=== PATIENT | female | born 1990 | race Caucasian/White ===

== ENCOUNTER 2024-01-06 10:31 | Emergency (ER) | payer MEDICAID, SELFPAY ==
[2024-01-06 10:34] VITALS: BP 144/90; PULSE 102; RESP 18; TEMP 36.7; O2SAT 100; BMI 49.1
--- NOTE | 2024-01-06 10:38 | ECG_ITS ---
APPROVED REPORT Exam: Resting ECG HR:87 bpm ECG Measurements Heart Rate 87 AXES UT 152 P 58 QRSd 90 QRS 6 QT 309 T 29 QTc 353 Conclusion SINUS RHYTHM NORMAL ECG UNCONFIRMED REPORT Electronically signed by : Luis Delaney MD 01/06/2024 19:53:05
[2024-01-06 11:00] VITALS: BP 136/79; PULSE 91; O2SAT 100
--- NOTE | 2024-01-06 11:00 | PC.NURSE ---
Dr. Mullen at [facility] for pt eval
--- NOTE | 2024-01-06 11:02 | XR_ITS ---
PROCEDURE INFORMATION: Exam: XR Chest Exam date and time: 01/06/2024 11:05 AM Age: 43 years old Clinical indication: Dyspnea TECHNIQUE: Imaging protocol: Radiologic exam of the chest. Views: 1 view. COMPARISON: No relevant prior studies available. FINDINGS: Lungs: Lung volumes are low. The lungs are otherwise clear. Pleural spaces: Unremarkable. No pleural effusion. No pneumothorax. Heart/Mediastinum: Unremarkable. No cardiomegaly. Bones/joints: Unremarkable. IMPRESSION: Low lung volumes.
--- NOTE | 2024-01-06 11:02 | HMH.EDGENADL ---
Discharge Plan Disposition Patient Disposition: Home, Self-Care Referrals Follow up/Referrals: Sussy Castillo [Primary Care Provider] - See instructions Clinical Impressions Clinical Impression: Cramp of muscle of left upper extremity, Cramp of muscle of right upper extremity, Atypical chest pain, Anxiety Discharge ED Provider: Estefany Mullen General Adult HPI General Chief complaint: Dizziness Stated complaint: dizziness shooting pain up each arm soa Time Seen by Provider: 01/06/24 10:59 Mode of Arrival: Ambulatory Source of Information: Patient Limitations: No Limitations Description of Symptoms (Recalled from ER Triage Doc. by RN): dizziness. tiongling in extremities. anxiety. no current symptoms History of Present Illness HPI narrative: Patient is a 43-year-old here with multiple complaints primarily here for bilateral arm tightness. No range of motion abnormalities states that she is been taking Tylenol with improvement in her symptoms. She states she had a short episode of chest pain yesterday with some dyspnea. Symptoms have since resolved. She is been undergoing a divorce and is very anxious and stressed out she believes that the majority of her symptoms she had been evaluated by physicians last year for this after COVID and flu episode and was told that it was largely anxiety. She is currently without any chest pain or shortness of breath. Has full range of motion her upper extremities has no sensory or motor deficits from historical standpoint. Related Data Allergies Allergy/AdvReac Type Severity Reaction Status Date / Time amoxicillin Allergy Verified 01/06/24 10:56 cephalexin [From Keflex] Allergy Verified 01/06/24 10:56 clindamycin Allergy Verified 01/06/24 10:56 diphenhydramine Allergy Verified 01/06/24 10:56 [From Benadryl] fexofenadine [From Violet] Allergy Verified 01/06/24 10:56 pantoprazole [From Protonix] Allergy Verified 01/06/24 10:56 Penicillins Allergy Verified 01/06/24 10:56 Sulfa (Sulfonamide Allergy Verified 01/06/24 10:56 Antibiotics) [facility] Disclaimer: The information contained in this section may have been updated after the patient was seen, as this information can be updated by other users. Social History Smoking Status: Never smoker alcohol intake: former current occupational status: other Travel in the last 8 weeks: None ROS Obtained: Yes All systems reviewed & no additional complaints except as documented Physical Exam General General appearance: alert Respiratory Respiratory exam: Present normal lung sounds bilaterally Cardiovascular Cardiovascular exam: Present regular rate Neurological Exam Neurological exam: Present alert Medical Decision Making Berry Inquiry Pt receiving controlled substance: No Vital Signs: 01/06/24 10:34 01/06/24 11:00 Temperature 98.1 F Temperature Source Oral Pulse Rate 91 H Pulse Rate [Right Radial] 102 H Respiratory Rate 18 Blood Pressure 136/79 Blood Pressure [Right Arm] 144/90 H Blood Pressure Mean [Right Arm] 108 02 Sat by Pulse Oximetry 100 100 Oxygen Delivery Method Room Air Room Air Lab Data Lab results reviewed: Yes I reviewed the patient's lab results. Lab Results 01/06/24 10:56: Urine Color Yellow, Urine Appearance Clear, Urine pH 6.0, Ur Specific [place] 1.025, Urine Protein Negative, Urine Glucose (UA) Negative, Urine Ketones Negative, Urine Blood Negative, Urine Nitrate Negative, Urine Bilirubin Negative, Urine Urobilinogen 1.0, Ur Leukocyte Esterase 1+ A, Urine RBC Occasional, Urine WBC 3-5, Ur Squamous Epith Cells 3-5, Urine Bacteria 1+ 01/06/24 11:18: WBC 7.9, RBC 4.26, Hgb 10.2 L, Hct 32.4 L, MCV 76.0 L, MCH 24.0 L, MCHC 31.6 L, RDW 17.7 H, Plt Count 365, MPV 7.6, Neut % (Auto) 64.7, Lymph % (Auto) 26.6, [place] % (Auto) 6.9, Eos % (Auto) 1.4, Baso % (Auto) 0.4, Neut # (Auto) 5.1, Lymph # (Auto) 2.1, [place] # (Auto) 0.5, Eos # (Auto) 0.1, Baso # (Auto) 0.0, Sodium 138, Potassium 3.7, Chloride 106, Carbon Dioxide 25, Anion Gap 10.7, BUN 9, Creatinine 0.70, Estimated Creat Clear 88, Estimated GFR 98, Est GFR ( Amer) 118, Glucose 100, Calcium 8.2 L, Magnesium 1.9, Total Bilirubin 0.3, AST 23, ALT 17, Alkaline Phosphatase 115, Total Creatine Kinase 72, Troponin I < 0.01, Total Protein 7.3, Albumin 3.9, Globulin 3.4 H, Albumin/Globulin Ratio 1.1 01/06/24 11:18 01/06/24 11:18 Orders (Tests/Meds): ORDERS Category Date Time Status CXR --portable [XR chest portable] Stat Exams 01/06/24 11:02 Completed CBC w/Auto Diff [Complete Blood Count Auto Diff] Stat Lab 01/06/24 11:18 Completed CK [Creatine Kinase] Stat Lab 01/06/24 11:18 Completed CMP [Comprehensive Metabolic Panel] Stat Lab 01/06/24 11:18 Completed Magnesium Stat Lab 01/06/24 11:18 Completed Trop I [Troponin I] Stat Lab 01/06/24 11:18 Completed Troponin I Q3H Lab 01/06/24 14:15 Ordered Troponin I Q3H Lab 01/06/24 17:15 Ordered UA [Urinalysis and Microscopic] Stat Lab 01/06/24 10:56 Completed Urine Culture Stat Micro 01/06/24 10:56 Received ECG initial [place] Routine Y 01/06/24 10:38 Completed ECG Data Tracing #1: I reviewed this ECG and interpreted as documented below: (Ventricular rate of 87 no acute ischemic changes indeterminate axis no conduction abnormalities) HEART Score History (anamnesis): Slightly suspicious ECG: Normal Age: <45 years Risk factors: No known risk factors Troponin: </= normal limit HEART Score: 0 Medical Decision Narrative: Very well-appearing 43-year-old asymptomatic female presenting with a with arm cramping that is since resolved she has been tolerating Tylenol for this and having improvement in symptoms she has normal neurovascular and muscular exam in upper extremities. She also had some chest pain and shortness of breath yesterday and is very anxious. States she was wanting to just get her heart checked out primarily. This is not consistent with ACS EKG is nonischemic we will get a single troponin. She is PERC negative. She will be reassured if her workup is negative and will be followed up outpatient. Reassessment 11:54 AM. Labs unremarkable chest x-ray performed which I first interpreted shows no acute cardiopulmonary emergency. Patient was reassured that no emergent medical condition was identified. She was discharged with instructions to follow-up with primary care doctor. Critical Care Critical Care Time Critical Care Time: No
[2024-01-06 11:03] LABS: Microscopic, Urine URINE MICROSCOPIC (MICROSCOPIC)
[2024-01-06 11:05] LABS: Appearance,Urine CLEAR (Clear); Bilirubin,Urine Negative (Negative); Blood, Urine Negative (Negative); Color,Urine YELLOW (Yellow); Glucose,Urine (UA) Negative (Negative); Ketones,Urine Negative (Negative); Leukocyte Esterase,Urine 1+ (Negative); Nitrate,Urine Negative (Negative); Protein,Urine Negative (Negative); Specific Gravity, Urine 1.025 (1.005-1.030)
--- NOTE | 2024-01-06 11:09 | PC.NURSE ---
RAD at for CXR
[2024-01-06 11:18] LABS: Bacteria,Urine 1+ /lpf; RBC,Urine Occasional #/hpf (0-3)
[2024-01-06 11:34] LABS: Basophils % 0.4 % (0.1-2.0); Eosinophils # 0.1 K/mm3 (0.0-0.4); Eosinophils % 1.4 % (0.1-12.0); Hematocrit 32.4 % (37.0-47.0); Hemoglobin 10.2 g/dL (12.2-16.2); Lymphocytes # 2.1 K/mm3 (0.7-4.5); Lymphocytes % 26.6 % (10-50); Mean Corpuscular HGB Conc 31.6 g/dL (31.8-35.4); Mean Platelet Volume 7.6 fl (7.4-10.4); Monocytes # 0.5 K/mm3 (0.1-1.0); Monocytes % 6.9 % (1.7-9.3); Neutrophils # 5.1 K/mm3 (1.8-7.8); Neutrophils % 64.7 % (37.0-80.0); Platelet Count 365 K/mm3 (142-424); Red Blood Count 4.26 M/mm3 (4.20-5.40); Red Cell Distribution Width 17.7 % (11.5-17.5); White Blood Count 7.9 K/mm3 (4.8-10.8)
[2024-01-06 11:36] LABS: Chloride 106 mmol/L (98-107); Potassium 3.7 mmoL/L (3.5-5.1); Sodium 138 mmol/L (136-145)
[2024-01-06 11:38] LABS: Blood Urea Nitrogen 9 mg/dl (7-17); Creatinine Clearance Estimated 88 mL/min (50-200); Estimated Glomerular Filt Rate 98 ml/min (>60); GFR (African American) 118 ML/MIN (>60)
[2024-01-06 11:39] LABS: Alanine Aminotransferase 17 U/L (12-78); Albumin Level 3.9 g/dl (3.5-5.0); Albumin/Globulin Ratio 1.1 (1.1-1.8); Alkaline Phosphatase 115 U/L (38-126); Anion Gap 10.7 mEq/L (5-15); Aspartate Amino Transferase 23 U/L (14-36); Bilirubin,Total 0.3 mg/dl (0.2-1.3); Calcium 8.2 mg/dl (8.4-10.2); Carbon Dioxide 25 mmol/L (22.0-30.0); Creatine Kinase 72 U/L (30-135); Globulin 3.4 g/dL (1.3-3.2); Glucose 100 mg/dl (74-100); Total Protein,Serum 7.3 g/dl (6.3-8.2)
[2024-01-06 11:40] LABS: Magnesium 1.9 mg/dl (1.6-2.3)
[2024-01-06 11:52] LABS: Troponin I < 0.01 ng/ml (0.00-0.034)
--- NOTE | 2024-01-06 11:52 | PC.NURSE ---
Dr. Mullen at BS to update pt on results
[2024-01-06 11:55] VITALS: BP 122/60; PULSE 72; RESP 18; TEMP 36.7; O2SAT 100
--- NOTE | 2024-01-06 12:00 | P.HP_ITS ---
[facility] Disclaimer: The information contained in this section may have been updated after the patient was seen, as this information can be updated by other users. Social History (Updated 01/06/24 @ 11:55 by Estefany Mullen MD) Smoking Status: Never smoker alcohol intake: former current occupational status: other Travel in the last 8 weeks: None Meds Home Medications and Allergies New Prescriptions to Start Prescriptions: Allergies Allergy/AdvReac Type Severity Reaction Status Date / Time amoxicillin Allergy Verified 01/06/24 10:56 cephalexin [From Keflex] Allergy Verified 01/06/24 10:56 clindamycin Allergy Verified 01/06/24 10:56 diphenhydramine Allergy Verified 01/06/24 10:56 [From Benadryl] fexofenadine [From Violet] Allergy Verified 01/06/24 10:56 pantoprazole [From Protonix] Allergy Verified 01/06/24 10:56 Penicillins Allergy Verified 01/06/24 10:56 Sulfa (Sulfonamide Allergy Verified 01/06/24 10:56 Antibiotics) Exam Data for Last 24 hours Vital signs and Labs for Last 24 Hours: Temp Pulse Resp BP Pulse Ox O2 Del Method 98.0 F 72 18 122/60 100 Room Air 01/06/24 11:55 01/06/24 11:55 01/06/24 11:55 01/06/24 11:55 01/06/24 11:00 01/06/24 11:55 Laboratory Results - last 24 hr 01/06/24 10:56: Urine Color Yellow, Urine Appearance Clear, Urine pH 6.0, Ur Specific [place] 1.025, Urine Protein Negative, Urine Glucose (UA) Negative, Urine Ketones Negative, Urine Blood Negative, Urine Nitrate Negative, Urine Bilirubin Negative, Urine Urobilinogen 1.0, Ur Leukocyte Esterase 1+ A, Urine RBC Occasional, Urine WBC 3-5, Ur Squamous Epith Cells 3-5, Urine Bacteria 1+ 01/06/24 11:18: WBC 7.9, RBC 4.26, Hgb 10.2 L, Hct 32.4 L, MCV 76.0 L, MCH 24.0 L, MCHC 31.6 L, RDW 17.7 H, Plt Count 365, MPV 7.6, Neut % (Auto) 64.7, Lymph % (Auto) 26.6, [place] % (Auto) 6.9, Eos % (Auto) 1.4, Baso % (Auto) 0.4, Neut # (Auto) 5.1, Lymph # (Auto) 2.1, [place] # (Auto) 0.5, Eos # (Auto) 0.1, Baso # (Auto) 0.0, Sodium 138, Potassium 3.7, Chloride 106, Carbon Dioxide 25, Anion Gap 10.7, BUN 9, Creatinine 0.70, Estimated Creat Clear 88, Estimated GFR 98, Est GFR ( Amer) 118, Glucose 100, Calcium 8.2 L, Magnesium 1.9, Total Bilirubin 0.3, AST 23, ALT 17, Alkaline Phosphatase 115, Total Creatine Kinase 72, Troponin I < 0.01, Total Protein 7.3, Albumin 3.9, Globulin 3.4 H, Albumin/Globulin Ratio 1.1 I & O for Last 24 hours: Intake & Output 01/03/24 01/04/24 01/05/24 01/06/24 23:59 23:59 23:59 23:59 Weight 117.934 kg
== END 2024-01-06 11:57 | disposition home or self-care (01) ==
PROVIDERS: Emergency Provider Student in an Organized Health Care Education/Training Program; PCP Family Medicine
DX: R42 Dizziness and giddiness (principal); R25.2 Cramp and spasm; F41.9 Anxiety disorder, unspecified; R20.2 Paresthesia of skin
CPT/HCPCS: 71045; 80053; 81001; 82550; 83735; 84484; 85025; 87086; 93005; 99285

== ENCOUNTER 2024-04-01 21:38 | Emergency (ER) | payer MEDICAID, SELFPAY ==
[2024-04-01 21:39] VITALS: BP 143/88; PULSE 77; RESP 18; TEMP 36.7; O2SAT 99; BMI 47.2
--- NOTE | 2024-04-01 21:41 | ECG_ITS ---
APPROVED REPORT Exam: Resting ECG HR:74 bpm ECG Measurements Heart Rate 74 AXES [place] 159 P 34 QRSd 98 QRS 26 QT 336 T 16 QTc 364 Conclusion SINUS RHYTHM LOW QRS VOLTAGE IN PRECORDIAL LEADS [QRS DEFLECTION < 1.0 mV IN CHEST LEADS] NONSPECIFIC T-WAVE ABNORMALITY BORDERLINE ECG UNCONFIRMED REPORT Electronically signed by : Torsten Mullen, 04/01/2024 22:53:43
[2024-04-01 21:47] VITALS: PULSE 76
--- NOTE | 2024-04-01 22:05 | ED_ITS ---
<Statement entered by Estefany Mullen MD - 04/01/24 22:46> I was consulted by the RONALDO, and we discussed the complexity of the problems being addressed. I approved the treatment and management plan for this patient's care in the emergency department, thus performing a substantive portion of the medical decision making. Estefany Mullen MD, KELSEY, FACEP Discharge Plan Disposition Patient Disposition: Home, Self-Care Condition: Good Referrals Follow up/Referrals: Sussy Castillo [Primary Care Provider] - See instructions Royal Newman MD [Staff Physician] - See instructions Joya Iniguez APRN [Nurse Practitioner] - See instructions Activity Restrictions/Add. Instructions Additional Instructions/Restrictions: Follow-up with your PCP. I have referred you to cardiology here for further evaluation. Return to the ER for any worsening signs or symptoms. Clinical Impressions Clinical Impression: Acute chest pain Discharge ED Provider: Estefany Mullen General Adult HPI General Chief complaint: Chest Pain Stated complaint: Chest pain Time Seen by Provider: 04/01/24 22:05 Mode of Arrival: Wheelchair Source of Information: Patient Limitations: No Limitations Description of Symptoms (Recalled from ER Triage Doc. by RN): Patient reports left arm pain radiating into central chest pain. Patient also endorses left arm numbness and states that she's experienced that before but it's never lasted this long before. Patient states that her pain started accompanied by dizziness at approximately 6pm. Patient denies fever, cough, other symptoms. History of Present Illness HPI narrative: Patient presents for evaluation of chest pain. Patient reports that she has substernal chest pain that radiates up into her left arm that began around 6 PM while at rest. Patient states that this is very similar to previous anxiety/panic attacks that she has (that she is currently on no medication for) however they usually only last about an hour and subside. Patient states that the pain is currently at the time of my exam 2200 hrs. and rates the pain a 10 out of 10 patient denies shortness of breath fever chills hemoptysis hematochezia melena nausea vomiting diarrhea diaphoresis headache loss of consciousness change in vision or senses Related Data Allergies Allergy/AdvReac Type Severity Reaction Status Date / Time amoxicillin Allergy Verified 01/06/24 10:56 cephalexin [From Keflex] Allergy Verified 01/06/24 10:56 clindamycin Allergy Verified 01/06/24 10:56 diphenhydramine Allergy Verified 01/06/24 10:56 [From Benadryl] fexofenadine [From Violet] Allergy Verified 01/06/24 10:56 pantoprazole [From Protonix] Allergy Verified 01/06/24 10:56 Penicillins Allergy Verified 01/06/24 10:56 Sulfa (Sulfonamide Allergy Verified 01/06/24 10:56 Antibiotics) [facility] Disclaimer: The information contained in this section may have been updated after the patient was seen, as this information can be updated by other users. Social History (Updated 01/06/24 @ 11:55 by Estefany Mullen MD) Smoking Status: Never smoker alcohol intake: former current occupational status: other Travel in the last 8 weeks: None ROS Obtained: Yes Systems reviewed as appropriate & no additional complaints except as documented Physical Exam General General appearance: alert and in no apparent distress Head Head exam: atraumatic Eye Eye exam: Present normal appearance and EOMI ENT ENT exam: Present normal exam, normal oropharynx, mucous membranes moist and TM's normal bilaterally; Absent normal external ear exam (Patient has a comedone that is not obstructing the right external auditory canal. Patient's right TM appears scarified from previous tympanostomy tubes) Neck Neck exam: Present normal inspection, full ROM and lymphadenopathy; Absent tenderness Chest Chest inspection: Present normal inspection, symmetric chest wall rise and tenderness (Patient has tenderness to palpation in the left upper anterior chest wall but no evidence of ecchymosis deformity cellulitis noted) Respiratory Respiratory exam: Present normal lung sounds bilaterally; Absent respiratory distress, wheezes, stridor or accessory muscle use Cardiovascular Cardiovascular exam: Present regular rate, normal rhythm, normal heart sounds, +S1 and +S2 Abdominal Exam Abdominal exam: Present soft (Grossly obese) and normal bowel sounds; Absent tenderness Extremities Exam Extremities exam: Present normal inspection and full ROM Back Exam Back exam: Present normal inspection and full ROM Neurological Exam Neurological exam: Present alert and oriented X3 Psychiatric Psychiatric exam: Present normal mood, flat affect and other (Patient keeps her eyes closed during our conversation however patient is awake alert and interactive oriented to person place and circumstance) Skin Skin exam: Present warm, dry and normal color Medical Decision Making Medical Records Medical records reviewed: Yes I reviewed the patient's medical records. Berry Inquiry Pt receiving controlled substance: No Vital Signs: 04/01/24 21:39 04/01/24 21:47 Temperature 98.0 F Temperature Source Oral Pulse Rate 76 Pulse Rate [Left Radial] 77 Respiratory Rate 18 Blood Pressure [Right Arm] 143/88 H Blood Pressure Mean [Right Arm] 106 Blood Pressure Source [Right Arm] Automatic Cuff 02 Sat by Pulse Oximetry 99 Oxygen Delivery Method Room Air Lab Data Lab results reviewed: Yes I reviewed the patient's lab results. Lab Results 04/01/24 21:45: WBC 10.7, RBC 4.53, Hgb 11.5 L, Hct 37.2, MCV 82.0, MCH 25.4 L, MCHC 31.0 L, RDW 17.4, Plt Count 372, MPV 7.7, Neut % (Auto) 58.8, Lymph % (Auto) 33.3, [place] % (Auto) 5.7, Eos % (Auto) 1.3, Baso % (Auto) 0.8, Neut # (Auto) 6.3, Lymph # (Auto) 3.6, [place] # (Auto) 0.6, Eos # (Auto) 0.1, Baso # (Auto) 0.1, Sodium 138, Potassium 3.8, Chloride 103, Carbon Dioxide 29, Anion Gap 9.8, BUN 8, Creatinine 0.70, Estimated Creat Clear 88, Estimated GFR 98, Est GFR ( Amer) 118, Glucose 103 H, Calcium 9.7, Magnesium 2.0, Troponin I < 0.01 04/01/24 21:45 04/01/24 21:45 Orders (Tests/Meds): ED MEDICATIONS Discontinued Medications Generic Name Dose Route Start Last Admin Trade Name Freq PRN Reason Stop Dose Admin Acetaminophen 1,000 mg 04/01/24 22:06 04/01/24 22:32 Acetaminophen 500mg Tab PO 04/01/24 22:07 Not Given ONCE ONE Belladonna Alkaloids 60 ml 04/01/24 22:15 Belladonna Alkaloids 60 Ml Ml PO 04/01/24 22:16 ONCE ONE Ketorolac Tromethamine 30 mg 04/01/24 22:06 04/01/24 22:28 Ketorolac 30mg/Ml Vial IV 04/01/24 22:07 30 mg ONCE ONE Administration ORDERS Category Date Time Status Chest XR -- portable [XR chest portable] Stat Exams 04/01/24 22:06 Taken BMP [Basic Metabolic Panel] Stat Lab 04/01/24 21:45 Completed CBC w/Auto Diff [Complete Blood Count Auto Diff] Stat Lab 04/01/24 21:45 Completed HCG Qualitative, Serum Stat Lab 04/01/24 21:45 Received Magnesium Stat Lab 04/01/24 21:45 Completed Trop I [Troponin I] Stat Lab 04/01/24 21:45 Completed Troponin I Q3H Lab 04/02/24 01:15 Ordered Troponin I Q3H Lab 04/02/24 04:15 Ordered HEART Score History (anamnesis): Slightly suspicious ECG: Normal Age: <45 years Risk factors: 1-2 risk factors Medical Decision Narrative: In summary patient is a 33-year-old female who presents to the emergency department for evaluation of chest pain. Patient is hemodynamically stable upon arrival, afebrile. Physical exam is remarkable for reproducible chest pain in the left upper chest without any evidence of deformity or trauma crepitus. Breath sounds are clear to auscultation without adventitious sounds. He KG shows normal sinus rhythm on the bedside monitor. Remainder of her physical exam is nonfocal and unremarkable.. Differential diagnosis includes ACS versus musculoskeletal strain versus psychiatric somatizations versus PE etc. Initial workup will be conducted with hematologic labs twelve-lead EKG plain film chest x-ray. Initial interventions include Tylenol and Toradol. I considered antihistamine however patient has allergies to all antihistamines so I will defer for now. Initial workup reviewed by me shows that her hematologic labs are nonactionable, EKG does not show evidence of ACS, my informal interpretation of her plain film chest x-ray shows no acute processes.. Upon repeat evaluation patient has declined both acetaminophen and GI cocktail and only excepted the Toradol but still reports left upper extremity pain. Given this we have essentially ruled out any serious or life-threatening illness and patient is appropriate for discharge with close follow-up with her PCP. I did have interactive discussion with the patient about referring her to cardiology here as well as finding her a provider that provides medication management for her psychiatric issues. Patient accepted both referrals.. Critical Care Critical Care Time Critical Care Time: No
--- NOTE | 2024-04-01 22:06 | XR_ITS ---
PROCEDURE INFORMATION: Exam: XR Chest Exam date and time: 04/01/2024 10:10 PM Age: 33 years old Clinical indication: Other: Chest pain TECHNIQUE: Imaging protocol: Radiologic exam of the chest. Views: 1 view. COMPARISON: CR XR CHEST PORTABLE 01/06/2024 11:05 AM FINDINGS: Lungs: Unremarkable. No consolidation. Pleural spaces: Unremarkable. No pleural effusion. No pneumothorax. Heart/Mediastinum: Unremarkable. No cardiomegaly. Bones/joints: Unremarkable. IMPRESSION: Stable chest x-ray with no acute disease.
[2024-04-01 22:19] LABS: Chloride 103 mmol/L (98-107); Potassium 3.8 mmoL/L (3.5-5.1); Sodium 138 mmol/L (136-145)
[2024-04-01 22:22] LABS: Anion Gap 9.8 mEq/L (5-15); Blood Urea Nitrogen 8 mg/dl (7-17); Calcium 9.7 mg/dl (8.4-10.2); Carbon Dioxide 29 mmol/L (22.0-30.0); Creatinine Clearance Estimated 88 mL/min (50-200); Estimated Glomerular Filt Rate 98 ml/min (>60); GFR (African American) 118 ML/MIN (>60); Glucose 103 mg/dl (74-100)
[2024-04-01 22:23] LABS: Basophils # 0.1 K/mm3 (0-0.2); Basophils % 0.8 % (0.1-2.0); Eosinophils # 0.1 K/mm3 (0.0-0.4); Eosinophils % 1.3 % (0.1-12.0); Hematocrit 37.2 % (37.0-47.0); Hemoglobin 11.5 g/dL (12.2-16.2); Lymphocytes # 3.6 K/mm3 (0.7-4.5); Lymphocytes % 33.3 % (10-50); Mean Corpuscular Hemoglobin 25.4 pg (27.0-31.2); Mean Platelet Volume 7.7 fl (7.4-10.4); Monocytes # 0.6 K/mm3 (0.1-1.0); Monocytes % 5.7 % (1.7-9.3); Neutrophils # 6.3 K/mm3 (1.8-7.8); Neutrophils % 58.8 % (37.0-80.0); Platelet Count 372 K/mm3 (142-424); Red Blood Count 4.53 M/mm3 (4.20-5.40); Red Cell Distribution Width 17.4 % (11.5-17.5); White Blood Count 10.7 K/mm3 (4.8-10.8)
[2024-04-01] MEDS: KETOROLAC 30MG/ML VIAL 30 MG IV (22:28)
[2024-04-01 22:38] LABS: Troponin I < 0.01 ng/ml (0.00-0.034)
[2024-04-01 22:54] VITALS: BP 147/89; PULSE 73; RESP 19; TEMP 36.7; O2SAT 100
[2024-04-01 22:56] LABS: HCG Qualitative, Serum Negative (Negative)
== END 2024-04-01 22:56 | disposition home or self-care (01) ==
PROVIDERS: Physician Assistant; Emergency Provider Student in an Organized Health Care Education/Training Program; PCP Family Medicine
DX: R07.89 Other chest pain (principal); E66.01 Morbid (severe) obesity due to excess calories; F41.9 Anxiety disorder, unspecified; Z68.42 Body mass index [BMI] 45.0-49.9, adult
CPT/HCPCS: 71045; 80048; 83735; 84484; 84703; 85025; 93005; 96374; 99284

== ENCOUNTER 2024-05-01 07:33 | Outpatient (CLI) | payer MEDICAID, SELFPAY ==
--- NOTE | 2024-05-01 | CA_ITS ---
APPROVED REPORT Exam: Exercise Treadmill Technologist: Jennifer Delacruz, Ht: 5 ft 1 in Wt: 256 lbs BSA: 2.10 m2 HR: 73 bpm BP: 128/57 mmHg Rhythm: NSR, low voltage QRS 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 Medications: Albuterol,,,,, Famotidine,,,,, Escitalopram Oxalate,,,,, Cardiac Risk Factors: FHX of CAD Stress Test Details Test: Dontae HR Resting HR: 87 bpm Max Heart Rate (APMHR): 189 bpm Max HR Achieved: 159 bpm Target HR (85% APMHR): 161 bpm % of APMHR: 84 Recovery HR: 120 bpm HR response to stress: Blunted HR response to stress BP Resting BP: 126.0/56 mmHg Max BP: 164/80 mmHg Recovery BP: 144.0/59.0 mmHg BP response to stress: Normal blood pressure response to stress. ECG Resting ECG: NSR, low voltage QRS Stress EC.[address] depression Arrhythmia: None Recovery ECG: Return to baseline within 3 minutes of recovery Recovery Arrhythmia: None. Clinical Exercise duration: 04:48 min Highest Stage Achieved: Exercise capacity: 7.0 METs Overall Exercise Capacity for Age: Fair Stress ECG Conclusion This visit was nondiagnostic in the setting of inability to achieve target HR. She achieved a total of 7 METS. She has fair exercise capacity compared to age and sex matched peers She has normal BP, but blunted HR, response to exercise. Symptoms: No CP noted. Ectopy: No arrhythmias noted. ST changes: 0.[address] depression Conclusion: Nondiagnostic ECG stress test due to inability to achieve target HR. No significant ischemic In the setting of inability to achieve target HR, further evaluation with alternative modalities (i.e. CCTA or Lexiscan nuclear stress test) is recommended. Test Summary REST . . . . . . . Sitting REST . . . . . . . Standing REST . . . . . . . Standing REST 05:08 0.0 0.0 87 . 126/ 56 . . Stage 1 01:00 10.0 1.7 110 . . . . Stage 1 02:00 10.0 1.7 127 . . . . Stage 1 03:00 10.0 1.7 133 . 164/ 80 . . Stage 2 01:00 12.0 2.5 152 . . . . Stage 2 01:48 12.0 2.5 148 . . . Stop exercise at 04:48 RECOVERY 01:00 0.0 0.0 135 . . . . RECOVERY 02:00 0.0 0.0 104 . 144/ 59 . . RECOVERY 03:00 0.0 0.0 98 . 144/ 59 . . RECOVERY 04:00 0.0 0.0 102 . 129/ 60 . . RECOVERY 05:00 0.0 0.0 104 . 129/ 60 . . RECOVERY 05:26 0.0 0.0 101 . 111/ 57 . . Electronically signed by : Allie Aceves MD 05/05/2024 01:30:47
== END 2024-05-01 23:59 | disposition home or self-care (01) ==
LOC: RT 07:34
PROVIDERS: Visit Provider Nurse Practitioner Family
DX: R07.9 Chest pain, unspecified (principal); R42 Dizziness and giddiness; R06.09 Other forms of dyspnea; R94.31 Abnormal electrocardiogram [ECG] [EKG]
CPT/HCPCS: 93017; 93018

== ENCOUNTER 2024-05-16 14:01 | Emergency (ER) | payer MEDICAID, SELFPAY ==
[2024-05-16 14:02] VITALS: BP 107/52; PULSE 86; RESP 18; TEMP 36.6; O2SAT 96; BMI 47.6
--- NOTE | 2024-05-16 14:16 | ED_ITS ---
<Statement entered by Estefany Mullen MD - 05/16/24 23:11> I was consulted by the RONALDO, and we discussed the complexity of the problems being addressed. I approved the treatment and management plan for this patient's care in the emergency department, thus performing a substantive portion of the medical decision making. Estefany Mullen MD, KELSEY, FACEP Discharge Plan Disposition Patient Disposition: Home, Self-Care Condition: Good Prescriptions Prescriptions: New methocarbamol 750 mg tablet 750 mg PO Q4H PRN (Reason: muscle spasm) Qty: 10 0RF No Action famotidine 20 mg tablet 20 mg PO BID albuterol sulfate 90 mcg/actuation HFA aerosol inhaler 2 puff inhalation Q6H PRN escitalopram oxalate 10 mg tablet 10 mg PO DAILY PRN Referrals Follow up/Referrals: Sussy Castillo [Primary Care Provider] - See instructions Activity Restrictions/Add. Instructions Additional Instructions/Restrictions: Follow-up closely with your PCP. Return to ER for any worsening signs or symptoms as needed Clinical Impressions Clinical Impression: Acute torticollis Instructions Patient Instructions: DI for Headache Discharge ED Provider: Kirill Brown General Adult HPI General Chief complaint: Headache Stated complaint: right neck and head pain Time Seen by Provider: 05/16/24 14:16 Mode of Arrival: Ambulatory Source of Information: Patient Limitations: No Limitations Description of Symptoms (Recalled from ER Triage Doc. by RN): tension headache History of Present Illness HPI narrative: Patient presents for evaluation of a headache. Patient states that she woke up Monday with a headache on the right side of her neck. She has tried multiple various home remedies including Tylenol and Motrin without relief. Patient states that it is worse when she turns her head better when she is looking forward. She denies any vision changes any change in her sense of smell or taste no recent illnesses no recent chiropractor visits. She denies chest pain fever chills hemoptysis hematochezia melena nausea vomiting diarrhea. She is not photophobic or phonophobic. Related Data Home Medications Medication Instructions Recorded Confirmed albuterol sulfate 90 mcg/actuation 2 puff inhalation Q6H PRN 04/16/24 04/16/24 aerosol inhaler escitalopram oxalate 10 mg tablet 10 mg PO DAILY PRN 04/16/24 04/16/24 famotidine 20 mg tablet 20 mg PO BID 04/16/24 04/16/24 Previous Rx's Medication Instructions Recorded methocarbamol 750 mg tablet 750 mg PO Q4H PRN muscle spasm #10 05/16/24 tabs Allergies Allergy/AdvReac Type Severity Reaction Status Date / Time amoxicillin Allergy Verified 04/16/24 09:55 cephalexin [From Keflex] Allergy Verified 04/16/24 09:55 clindamycin Allergy Verified 04/16/24 09:55 diphenhydramine Allergy Verified 04/16/24 09:55 [From Benadryl] fexofenadine [From Violet] Allergy Verified 04/16/24 09:55 pantoprazole [From Protonix] Allergy Verified 04/16/24 09:55 Penicillins Allergy Verified 04/16/24 09:55 Sulfa (Sulfonamide Allergy Verified 04/16/24 09:55 Antibiotics) [facility] Disclaimer: The information contained in this section may have been updated after the patient was seen, as this information can be updated by other users. 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 (Updated 05/16/24 @ 16:25 by TAMMI Lemon) Abnormal electrocardiogram [ECG] [EKG] Social History Smoking Status: Never smoker alcohol intake: former current occupational status: other Travel in the last 8 weeks: None ROS Obtained: Yes Systems reviewed as appropriate & no additional complaints except as documented Physical Exam General General appearance: alert and in no apparent distress Head Head exam: atraumatic, normocephalic and normal inspection Eye Eye exam: Present normal appearance, PERRL and EOMI ENT ENT exam: Present normal exam, normal oropharynx and mucous membranes moist Neck Neck exam: Present normal inspection, trachea midline and tenderness (Patient is tender to palpation over the sternocleidomastoid and trapezius muscle but no midline tenderness); Absent full ROM (Patient has reduced range of motion due to pain in the right side of her neck muscles) or lymphadenopathy Chest Chest inspection: Present normal inspection and symmetric chest wall rise Respiratory Respiratory exam: Present normal lung sounds bilaterally; Absent respiratory distress, wheezes or accessory muscle use Cardiovascular Cardiovascular exam: Present regular rate, normal rhythm and normal heart sounds Abdominal Exam Abdominal exam: Present soft and normal bowel sounds; Absent tenderness Extremities Exam Extremities exam: Present normal inspection and full ROM; Absent tenderness Back Exam Back exam: Present normal inspection and full ROM; Absent tenderness Neurological Exam Neurological exam: Present alert, oriented X3 and CN II-XII intact Psychiatric Psychiatric exam: Present normal affect and normal mood Skin Skin exam: Present warm, dry and normal color Medical Decision Making Medical Records Medical records reviewed: Yes I reviewed the patient's medical records. Berry Inquiry Pt receiving controlled substance: No Vital Signs: 05/16/24 14:02 Temperature 97.9 F Temperature Source Oral Pulse Rate [Left] 86 Respiratory Rate 18 Blood Pressure [Right Arm] 107/52 L Blood Pressure Mean [Right Arm] 70 02 Sat by Pulse Oximetry 96 Oxygen Delivery Method Room Air Lab Data Lab results reviewed: Yes I reviewed the patient's lab results. Lab Results 05/16/24 15:05: WBC 8.9, RBC 4.44, Hgb 11.7 L, Hct 37.4, MCV 84.2, MCH 26.3 L, M CHC 31.2 L, RDW 16.9, Plt Count 341, MPV 7.3 L, Neut % (Auto) 66.2, Lymph % (Auto) 26.5, Ogle % (Auto) 5.6, Eos % (Auto) 1.1, Baso % (Auto) 0.6, Neut # (Auto) 5.9, Lymph # (Auto) 2.4, Ogle # (Auto) 0.5, Eos # (Auto) 0.1, Baso # (Auto) 0.1, Sodium 138, Potassium 3.8, Chloride 104, Carbon Dioxide 27, Anion Gap 10.8, BUN 6 L, Creatinine 0.60, Estimated Creat Clear 103, Estimated GFR 117, Est GFR ( Amer) 141, Glucose 92, Calcium 9.0, Serum HCG, Qual Negative 05/16/24 15:05 05/16/24 15:05 Orders (Tests/Meds): ED MEDICATIONS Generic Name Dose Route Start Last Admin Trade Name Freq PRN Reason Stop Dose Admin Methocarbamol 500 mg 05/16/24 21:00 Methocarbamol 500mg Tablet PO 06/15/24 20:59 BID ANAND Discontinued Medications Generic Name Dose Route Start Last Admin Trade Name Freq PRN Reason Stop Dose Admin Acetaminophen 1,000 mg 05/16/24 14:23 05/16/24 15:07 Acetaminophen 1,000mg/100ml Vial IV 05/16/24 14:24 1,000 mg ONCE ONE Administration Dexamethasone Sodium Phosphate 10 mg 05/16/24 14:23 05/16/24 15:07 Dexamethasone 4mg/Ml 5ml Mdv IV 05/16/24 14:24 10 mg ONCE ONE Administration Lactated Ringer's 1,000 mls @ 999 mls/hr 05/16/24 14:23 05/16/24 15:07 Lactated Ringer's 1000 Ml Bag IV 05/16/24 15:23 999 mls/hr .Q1H1M ONE Administration Ketorolac Tromethamine 15 mg 05/16/24 14:23 05/16/24 15:08 Ketorolac 30mg/Ml Vial IV 05/16/24 14:24 15 mg ONCE ONE Administration Prochlorperazine Edisylate 10 mg 05/16/24 14:23 05/16/24 15:08 Prochlorperazine 10mg/2ml Vial IV 05/16/24 14:24 10 mg ONCE ONE Administration ORDERS Category Date Time Status BMP [Basic Metabolic Panel] Stat Lab 05/16/24 15:05 Completed CBC w/Auto Diff [Complete Blood Count Auto Diff] Stat Lab 05/16/24 15:05 Completed HCG Qualitative, Serum Stat Lab 05/16/24 15:05 Completed Medical Decision Narrative: In summary patient is a 33-year-old female who presents to the emergency department for evaluation of torticollis. Patient is hemodynamically stable upon arrival, afebrile. Physical exam is remarkable for sternocleidomastoid and trapezius tenderness on the right. No midline tenderness. Patient's Glascow coma score is 15 with no focal neurologic deficits.. Differential diagnosis includes torticollis versus cervical disc disease versus tension headache etc. Initial workup will be conducted with hematologic labs. Initial interventions include crystalloid bolus Toradol Tylenol Decadron Compazine Robaxin continuous cardiac monitoring continuous pulse oximetry. Initial workup reviewed by me and her hematologic workup is nonactionable.. Upon repeat evaluation patient reported improvement in her headache after initial intervention.. Given this patient is appropriate for discharge with prescription sent to her pharmacy for Robaxin. Critical Care Critical Care Time Critical Care Time: No
[2024-05-16] MEDS: ACETAMINOPHEN 1,000MG/100ML VIAL 1000 MG IV (15:07)
[2024-05-16] MEDS: LACTATED RINGERS 1000ML 1,000 ML 999 ML IV (15:07)
[2024-05-16] MEDS: DEXAMETHASONE 4MG/ML 5ML MDV 10 MG IV (15:07)
[2024-05-16] MEDS: PROCHLORPERAZINE 10MG/2ML VIAL 10 MG IV (15:08)
[2024-05-16] MEDS: KETOROLAC 30MG/ML VIAL 15 MG IV (15:08)
[2024-05-16 15:16] LABS: Chloride 104 mmol/L (98-107)
[2024-05-16 15:17] LABS: Potassium 3.8 mmoL/L (3.5-5.1); Sodium 138 mmol/L (136-145)
[2024-05-16 15:19] LABS: Blood Urea Nitrogen 6 mg/dl (7-17); Creatinine Clearance Estimated 103 mL/min (50-200); Estimated Glomerular Filt Rate 117 ml/min (>60); GFR (African American) 141 ML/MIN (>60)
[2024-05-16 15:20] LABS: Anion Gap 10.8 mEq/L (5-15); Carbon Dioxide 27 mmol/L (22.0-30.0); Glucose 92 mg/dl (74-100)
[2024-05-16 15:21] LABS: Basophils # 0.1 K/mm3 (0-0.2); Basophils % 0.6 % (0.1-2.0); Eosinophils # 0.1 K/mm3 (0.0-0.4); Eosinophils % 1.1 % (0.1-12.0); Hematocrit 37.4 % (37.0-47.0); Hemoglobin 11.7 g/dL (12.2-16.2); Lymphocytes # 2.4 K/mm3 (0.7-4.5); Lymphocytes % 26.5 % (10-50); Mean Corpuscular HGB Conc 31.2 g/dL (31.8-35.4); Mean Corpuscular Hemoglobin 26.3 pg (27.0-31.2); Mean Corpuscular Volume 84.2 fl (81-99); Mean Platelet Volume 7.3 fl (7.4-10.4); Monocytes # 0.5 K/mm3 (0.1-1.0); Monocytes % 5.6 % (1.7-9.3); Neutrophils # 5.9 K/mm3 (1.8-7.8); Neutrophils % 66.2 % (37.0-80.0); Platelet Count 341 K/mm3 (142-424); Red Blood Count 4.44 M/mm3 (4.20-5.40); Red Cell Distribution Width 16.9 % (11.5-17.5); White Blood Count 8.9 K/mm3 (4.8-10.8)
[2024-05-16 15:27] LABS: HCG Qualitative, Serum Negative (Negative)
[2024-05-16 16:20] VITALS: BP 134/82; PULSE 70; RESP 18; TEMP 36.8; O2SAT 98
== END 2024-05-16 16:20 | disposition home or self-care (01) ==
PROVIDERS: Physician Assistant; Emergency Provider Emergency Medicine; PCP Family Medicine
DX: M43.6 Torticollis (principal); R51.9 Headache, unspecified
CPT/HCPCS: 80048; 84703; 85025; 96361; 96374; 96375; 99284; J0131; J1885; J7120

== ENCOUNTER 2024-06-12 10:00 | Outpatient (CLI) | payer MEDICAID, SELFPAY ==
--- NOTE | 2024-06-12 10:00 | NM_ITS ---
APPROVED REPORT Exam: Nuclear Stress Test Indication: FM HX, C.P., SOB, FATIGUE, DIZZINESS Patient Location: Outpatient Stress Tech: Maame Lovett [place] Tech:Janiya Marinelli MAHNAZKaden RT (R)(N)(M) Ht: 5 ft 1 in Wt: 256 lbs Bra Size: 48DD HR: 74 bpm BP: 126/79 mmHg BSA: 2.10 m2 TID: 0.91 BMI: 48.3 History: FM HX, C.P., SOB, FATIGUE, DIZZINESS Procedure: Patient received 0.4 mg of intravenous Lexiscan, resting heart rate 74 bpm, resting blood pressure 126/79 mmHg, with Lexiscan maximum heart rate achieved was 111 bpm which is % of the maximum predicted heart rate and blood pressure was 139/73 mmHg. With Lexiscan, patient denied any complaint of chest pain. Cardiac Stress and Resting SPECT Images: Cardiac Stress and Resting SPECT images were obtained using technetium 99m Myoview 31.4 mCi stress and 10.11 mCi at rest. Resting and stress imaging in supine and prone positions demonstrate no evidence of fixed or reversible perfusion defects. Gated imaging demonstrates normal global and regional LV systolic function. LVEF is calculated at 60%. Conclusion: No evidence of fixed or reversible perfusion defects. Gated imaging demonstrates normal global and regional LV systolic function. LVEF is calculated at 60%. Electronically signed by : Allie Aceves MD 06/16/2024 22:26:55
[2024-06-12] MEDS: SODIUM CHLORIDE 0.9% 10ML SYR (RAD ONLY) 10 ML IV ×2 (11:00→12:00)
[2024-06-12] MEDS: REGADENOSON 0.4MG/5ML SYRINGE 0.4 MG IV (12:00)
[2024-06-12] MEDS: ISOTOPE MYOVIEW (PER STUDY) 1 DOSE IV (13:09)
--- NOTE | 2024-06-12 13:29 | CA_ITS ---
APPROVED REPORT Exam: Pharmacologic Technologist: Maame Lovett Ht: 5 ft 1 in Wt: 256 lbs BSA: 2.10 m2 HR: 74 bpm BP: 126/79 mmHg Indications: Chest pain, dyspnea 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 Medications: Albuterol,,,,, Famotidine,,,,, Methocarbamol,,,,, Escitalopram Oxalate,,,,, Stress Test Details Test: LEXISCAN HR Resting HR: 82 bpm Max Heart Rate (APMHR): 189 bpm Max HR Achieved: 115 bpm Target HR (85% APMHR): 161 bpm % of APMHR: 61 Recovery HR: 90 bpm BP Resting BP: 126.0/79.0 mmHg Max BP: 141.0/79.0 mmHg Recovery BP: 141.0/79.0 mmHg ECG Resting ECG: Normal sinus rhythm, low voltage QRS Stress ECG: New T wave changes noted after Lexiscan administration Arrhythmia: None Clinical Exercise duration: 04:00 min Highest Stage Achieved: Exercise capacity: 1.0 METs Stress ECG Conclusion Symptoms: Chest tightness, head discomfort, fatigue Arrhythmias/Ectopy: None ST-T Changes: New T wave changes noted after Lexiscan administration Conclusion: EKG changes suggestive, but not diagnostic, of ischemia. Myoview images reported separately. Test Summary REST . . . . . . . Resting REST 04:00 . . 82 . 126/ 79 . . Stage 1 . . . . . . . Myoview Injected Stage 1 01:00 . . 111 . . . . Stage 2 . . . . . . . chest tightness Stage 2 01:00 . . 105 . . . . Stage 3 01:00 . . 99 . 123/ 75 . . Stage 4 01:00 . . 99 . 119/ 71 . Stop exercise at 04:00 RECOVERY 01:00 . . 93 . . . . RECOVERY 02:00 . . 94 . 136/ 73 . . RECOVERY 03:00 . . 86 . 141/ 79 . . RECOVERY 03:22 . . 85 . 141/ 79 . . Electronically signed by : Allie Aceves MD 06/16/2024 22:26:00
== END 2024-06-12 23:59 | disposition home or self-care (01) ==
LOC: RAD 10:00
PROVIDERS: PCP Nurse Practitioner; Visit Provider Nurse Practitioner
DX: R07.9 Chest pain, unspecified (principal); R06.09 Other forms of dyspnea; R94.31 Abnormal electrocardiogram [ECG] [EKG]; R42 Dizziness and giddiness
CPT/HCPCS: 78452; 93017; 93018; A9502; J2785

== ENCOUNTER 2024-08-10 14:47 | Emergency (ER) | payer MEDICAID, SELFPAY ==
[2024-08-10 15:35] VITALS: BP 133/86; PULSE 94; RESP 20; TEMP 36.7; O2SAT 99; BMI 48.9
--- NOTE | 2024-08-10 15:45 | EXP.UTC ---
Discharge Plan Disposition Patient Disposition: Home, Self-Care Condition: Good Prescriptions Prescriptions: No Action famotidine 20 mg tablet 20 mg PO BID albuterol sulfate 90 mcg/actuation HFA aerosol inhaler 2 puff inhalation Q6H PRN escitalopram oxalate 10 mg tablet 10 mg PO DAILY PRN methocarbamol 750 mg tablet 750 mg PO Q4H PRN (Reason: muscle spasm) Qty: 10 0RF Referrals Follow up/Referrals: Sussy Castillo [Primary Care Provider] - See instructions Activity Restrictions/Add. Instructions Additional Instructions/Restrictions: rest Ice with cold pack for 20 minutes remove may repeat for comfort every hour Ibuprofen every 6 hours as needed for pain or inflammation. If needs something more you can take Tylenol every 4 hours as needed as long as her primary care has told he was okayed for you to take both. Follow-up immediately if new or worsening symptoms or no noticeable improvement over the next 3-5 days. call PCP for appointment [id number] muscle rubs or patches Clinical Impressions Clinical Impression: Cervical strain Instructions Patient Instructions: DI for Cervical Muscle Strain Print Language Print Language: Emirati Discharge ED Provider: Lynn ([facility])[place] [facility] [place] General Stated complaint: body aches, weakness, pain when walking Mode of Arrival: Ambulatory Source of Information: Patient Limitations: No Limitations Time Seen by Provider: 08/10/24 15:45 Description of Symptoms (Recalled from Triage Doc. by RN): PATIENT C/O PAIN TO BACK OF NECK AND LOWER BACK, FEELING TIRED AND LIGHT-HEADED SINCE MONDAY HEENT Symptoms (Recalled from RN notes): No Resp Symptoms (Recalled from RN notes): No Skin Symptoms (Recalled from RN notes): No MS Symptoms (Recalled from RN notes): Yes Functional Status (Recalled from RN notes): WNL History of Present Illness Provider Complaint: 33-year-old female presents for pain in the back of the neck that radiates down her back thinks she pulled a muscle by turning the wrong way. Patient states she does not on any medication she just wanted some ideas for [id number] to use. Related Data Home Medications ?Medication ?Instructions ?Recorded ?Confirmed albuterol sulfate 90 mcg/actuation 2 puff inhalation Q6H PRN 04/16/24 07/10/24 aerosol inhaler escitalopram oxalate 10 mg tablet 10 mg PO DAILY PRN 04/16/24 07/10/24 famotidine 20 mg tablet 20 mg PO BID 04/16/24 07/10/24 Previous Rx's ?Medication ?Instructions ?Recorded methocarbamol 750 mg tablet 750 mg PO Q4H PRN muscle spasm #10 05/16/24 tabs Allergies Allergy/AdvReac Type Severity Reaction Status Date / Time amoxicillin Allergy Verified 07/10/24 10:09 cephalexin [From Keflex] Allergy Verified 07/10/24 10:09 clindamycin Allergy Verified 07/10/24 10:09 diphenhydramine Allergy Verified 07/10/24 10:09 [From Benadryl] fexofenadine [From Violet] Allergy Verified 07/10/24 10:09 pantoprazole [From Protonix] Allergy Verified 07/10/24 10:09 Penicillins Allergy Verified 07/10/24 10:09 Sulfa (Sulfonamide Allergy Verified 07/10/24 10:09 Antibiotics) Worker's Comp Is this a Worker's Comp case?: No [facility] Disclaimer: The information contained in this section may have been updated after the patient was seen, as this information can be updated by other users. 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) Smoking Status: Never smoker alcohol intake: former current occupational status: other Travel in the last 8 weeks: None ROS Obtained: Yes All systems reviewed & no additional complaints except as documented Constitutional Constitutional: Reports system reviewed and no additional complaints, except as documented Eyes Eyes: Reports system reviewed and no additional complaints, except as documented ENT Ears, Nose, Mouth, and Throat: Reports system reviewed and no additional complaints, except as documented Cardiovascular Cardiovascular: Reports system reviewed and no additional complaints, except as documented Respiratory Respiratory: Reports system reviewed and no additional complaints, except as documented Gastrointestinal Gastrointestingal: Reports system reviewed and no additional complaints, except as documented Musculoskeletal Musculoskeletal: Reports system reviewed and no additional complaints, except as documented, Reports as per HPI, Reports muscle cramps and Reports myalgias Allergic/Immunologic Allergic/Immunologic: Reports system reviewed and no additional complaints, except as documented Physical Exam General General appearance: alert and in no apparent distress Head Head exam: atraumatic Eye Eye exam: Present normal appearance and PERRL ENT ENT exam: Present normal exam, normal oropharynx, mucous membranes moist and TM's normal bilaterally Respiratory Respiratory exam: Present normal lung sounds bilaterally Cardiovascular Cardiovascular exam: Present regular rate and normal rhythm Neurological Exam Neurological exam: Present alert and oriented X3 Skin Skin exam: Present warm and intact Medical Decision Making Medical Records Medical records reviewed: Yes I reviewed the patient's medical records. Berry Inquiry Pt receiving controlled substance: No Berry was queried for this patient: No Vital Signs: 08/10/24 15:35 Temperature 98.1 F Temperature Source Oral Pulse Rate [Right Brachial] 94 H Respiratory Rate 20 Blood Pressure [Right Arm] 133/86 Blood Pressure Mean [Right Arm] 101 Blood Pressure Source [Right Arm] Automatic Cuff Blood Pressure Position [Right Arm] Sitting 02 Sat by Pulse Oximetry 99 Oxygen Delivery Method Room Air Lab Data Lab results reviewed: Yes I reviewed the patient's lab results.
[2024-08-10 16:04] LABS: Apearance,Urine Clear (Clear); Bilirubin,Urine Negative (Negative); Blood, Urine Trace (Negative); Color,Urine Yellow (Yellow); Glucose,Urine (UA) Negative (Negative); Ketones,Urine Negative (Negative); PH,Urine 5.5 (5.0-8.5); Protein,Urine Negative (Negative); Specific Gravity, Urine >= 1.030 (1.005-1.030); UTC Leukocyte Esterase,Urine Negative (Negative); UTC Nitrate,Urine Negative (Negative); Urobilinogen,Urine 0.2 EU/dl (0.2)
[2024-08-10 16:21] VITALS: BP 133/86; PULSE 94; RESP 20; TEMP 36.7; O2SAT 99
== END 2024-08-10 16:25 | disposition home or self-care (01) ==
PROVIDERS: Emergency Provider Nurse Practitioner Family; PCP Family Medicine
DX: S16.1XXA Strain of muscle, fascia and tendon at neck level, initial encounter (principal); R53.83 Other fatigue; X50.0XXA Overexertion from strenuous movement or load, initial encounter
CPT/HCPCS: 81003; 87086; 99212; 99213; G0463

== ENCOUNTER 2024-09-17 12:27 | Emergency (ER) | payer MEDICAID, SELFPAY ==
[2024-09-17] VITALS (8 sets, daily range): BP systolic 107–135; BP diastolic 73–90; PULSE 64–85; RESP 16–20; TEMP 36.5–36.8; O2SAT 96–100; BMI 49.2; BMI 49.3
--- NOTE | 2024-09-17 14:01 | ED_ITS ---
Discharge Plan Disposition Patient Disposition: Home, Self-Care Condition: Good Prescriptions Prescriptions: No Action famotidine 20 mg tablet 20 mg PO BID albuterol sulfate 90 mcg/actuation HFA aerosol inhaler 2 puff inhalation Q6H PRN (Reason: SOA) Referrals Follow up/Referrals: Mauri Delacruz MD [Referring] - See instructions Provider,Referral, [Primary Care Provider] - See instructions Activity Restrictions/Add. Instructions Additional Instructions/Restrictions: We have found no direct obvious cause of your symptoms however indirectly there is a possibility that you have already passed a kidney stone. To that end we have referred you to urology. Please call and make an appointment in the morning. Follow-up with your Clinical Impressions Clinical Impression: Abdominal pain, right lower quadrant Instructions Patient Instructions: DI for Acute Abdominal Pain Print Language Print Language: Setswana Discharge ED Provider: Ben De Luna [facility] [place] General Chief complaint: Abdominal Pain Stated complaint: side sharp pain, abd pain, weakness Mode of Arrival: Ambulatory Source of Information: Patient Limitations: No Limitations Time Seen by Provider: 09/17/24 14:01 Description of Symptoms (Recalled from Triage Doc. by RN): PATIENT C/O CONSTANT, STABBING RLQ PAIN WITH NAUSEA THAT STARTED YESTERDAY EVENING HEENT Symptoms (Recalled from RN notes): No Resp Symptoms (Recalled from RN notes): No Skin Symptoms (Recalled from RN notes): No MS Symptoms (Recalled from RN notes): No Functional Status (Recalled from RN notes): WNL History of Present Illness Provider Complaint: Patient states that she started last night with right lower quad pain that is stabbing like pain that goes up right side to around her naval area States that after the pain started she started having nausea States pain has continued to get worse since last night and she is worried it may be her appendix Related Data Home Medications ?Medication ?Instructions ?Recorded ?Confirmed albuterol sulfate 90 mcg/actuation 2 puff inhalation Q6H PRN SOA 04/16/24 09/17/24 aerosol inhaler famotidine 20 mg tablet 20 mg PO BID 04/16/24 09/17/24 Allergies Allergy/AdvReac Type Severity Reaction Status Date / Time amoxicillin Allergy Verified 07/10/24 10:09 cephalexin [From Keflex] Allergy Verified 07/10/24 10:09 clindamycin Allergy Verified 07/10/24 10:09 diphenhydramine Allergy Verified 07/10/24 10:09 [From Benadryl] fexofenadine [From Violet] Allergy Verified 07/10/24 10:09 pantoprazole [From Protonix] Allergy Verified 07/10/24 10:09 Penicillins Allergy Verified 07/10/24 10:09 Sulfa (Sulfonamide Allergy Verified 07/10/24 10:09 Antibiotics) Worker's Comp Is this a Worker's Comp case?: No [facility] Disclaimer: The information contained in this section may have been updated after the patient was seen, as this information can be updated by other users. 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) Smoking Status: Never smoker alcohol intake: former current occupational status: other Travel in the last 8 weeks: None ROS Obtained: Yes All systems reviewed & no additional complaints except as documented and Yes Systems reviewed as appropriate & no additional complaints except as documented Constitutional Constitutional: Reports system reviewed and no additional complaints, except as documented, Reports as per HPI, Denies body ache, Denies chills, Reports fatigue and Denies fever(s) ENT Ears, Nose, Mouth, and Throat: Reports system reviewed and no additional complaints, except as documented and Reports as per HPI Cardiovascular Cardiovascular: Reports system reviewed and no additional complaints, except as documented and Reports as per HPI Respiratory Respiratory: Reports system reviewed and no additional complaints, except as documented and Reports as per HPI Gastrointestinal Gastrointestingal: Reports system reviewed and no additional complaints, except as documented, as per HPI, abdominal pain (right lower quad pain since last night ) and nausea Endocrine Endocrine: Reports fatigue Physical Exam General General appearance: alert and in no apparent distress ENT ENT exam: Present mucous membranes moist Respiratory Respiratory exam: Present normal lung sounds bilaterally; Absent respiratory distress or wheezes Cardiovascular Cardiovascular exam: Present regular rate, normal rhythm and normal heart sounds Abdominal Exam Abdominal exam: Present soft and tenderness (reports tenderness with palpation in right lower quad) Neurological Exam Neurological exam: Present alert, oriented X3 and normal gait Medical Decision Making Medical Records Screening: Per USPSTF and CDC recommendations, given the prevalence of disease in our region, it is our hospital?s policy to screen for HIV and viral Hepatitis for all patients aged 18 and over and those with ongoing risk factors. Berry Inquiry Pt receiving controlled substance: No Berry was queried for this patient: No Vital Signs: 09/17/24 13:45 Temperature 97.7 F Temperature Source Oral Pulse Rate [Left Brachial] 64 Respiratory Rate 18 Blood Pressure [Left Arm] 129/73 Blood Pressure Mean [Left Arm] 91 Blood Pressure Source [Left Arm] Automatic Cuff Blood Pressure Position [Left Arm] Sitting 02 Sat by Pulse Oximetry 98 Oxygen Delivery Method Room Air Lab Data 09/17/24 14:13 09/17/24 14:13 Orders (Tests/Meds): ORDERS Category Date Time Status UA [Urinalysis and Microscopic] Stat Lab 09/17/24 13:50 Ordered Medical Decision Narrative: Patient reports that last night she started having sharp stabbing like pain in her right lower quad area that has continued to get worse and causing her to have nausea worried it may be her appendix Discussed with patient and due to complaint of abdominal pain will transfer to the ED for further work up and evaluation and patient agreed
--- NOTE | 2024-09-17 14:10 | PC.NURSE ---
ROB SNYDER AT BEDSIDE
--- NOTE | 2024-09-17 14:11 | HMH.EDGENADL ---
Discharge Plan Disposition Patient Disposition: Still a Patient Condition: Good Prescriptions Prescriptions: No Action famotidine 20 mg tablet 20 mg PO BID albuterol sulfate 90 mcg/actuation HFA aerosol inhaler 2 puff inhalation Q6H PRN (Reason: SOA) Referrals Follow up/Referrals: Mauri Delacruz MD [Referring] - See instructions Provider,MD Jos [Primary Care Provider] - See instructions Activity Restrictions/Add. Instructions Additional Instructions/Restrictions: We have found no direct obvious cause of your symptoms however indirectly there is a possibility that you have already passed a kidney stone. To that end we have referred you to urology. Please call and make an appointment in the morning. Follow-up with your Clinical Impressions Clinical Impression: Abdominal pain, right lower quadrant Instructions Patient Instructions: DI for Acute Abdominal Pain Print Language Print Language: Ukrainian Discharge ED Provider: Ben De Luna General Adult HPI <TAMMI Lemon - Last Filed: 09/17/24 18:17> General Chief complaint: Abdominal Pain Stated complaint: side sharp pain, abd pain, weakness Time Seen by Provider: 09/17/24 14:01 Mode of Arrival: Ambulatory Source of Information: Patient Limitations: No Limitations Description of Symptoms (Recalled from ER Triage Doc. by RN): PATIENT C/O CONSTANT, STABBING RLQ PAIN WITH NAUSEA THAT STARTED YESTERDAY EVENING History of Present Illness HPI narrative: Patient presents for evaluation of right lower quadrant abdominal pain. Patient began having right lower quadrant abdominal pain last night. It was approximately just before bedtime. She denies any trauma but states that she was helping pull her mother up in the bed but did not notice any pain at the time. Other than that she has no provoking factors. She reports nausea but no vomiting or diarrhea. It does not radiate. She has no chest pain shortness of breath fever chills hemoptysis hematochezia melena hematemesis hematuria. She denies dysuria vaginal discharge and she has had both a bowel movement and passing flatus today. She is not intolerant of oral intake. Related Data Home Medications ?Medication ?Instructions ?Recorded ?Confirmed albuterol sulfate 90 mcg/actuation 2 puff inhalation Q6H PRN SOA 04/16/24 09/17/24 aerosol inhaler famotidine 20 mg tablet 20 mg PO BID 04/16/24 09/17/24 Allergies Allergy/AdvReac Type Severity Reaction Status Date / Time amoxicillin Allergy Verified 07/10/24 10:09 cephalexin [From Keflex] Allergy Verified 07/10/24 10:09 clindamycin Allergy Verified 07/10/24 10:09 diphenhydramine Allergy Verified 07/10/24 10:09 [From Benadryl] fexofenadine [From Violet] Allergy Verified 07/10/24 10:09 pantoprazole [From Protonix] Allergy Verified 07/10/24 10:09 Penicillins Allergy Verified 07/10/24 10:09 Sulfa (Sulfonamide Allergy Verified 07/10/24 10:09 Antibiotics) [facility] <TAMMI Lemon - Last Filed: 09/17/24 18:17> [facility] Disclaimer: The information contained in this section may have been updated after the patient was seen, as this information can be updated by other users. 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) Smoking Status: Never smoker alcohol intake: former current occupational status: other Travel in the last 8 weeks: None <TAMMI Lemon - Last Filed: 09/17/24 18:17> ROS Obtained: Yes Systems reviewed as appropriate & no additional complaints except as documented Physical Exam <TAMMI Lemon - Last Filed: 09/17/24 18:17> General General appearance: alert and in no apparent distress Respiratory Respiratory exam: Present normal lung sounds bilaterally Cardiovascular Cardiovascular exam: Present regular rate Neurological Exam Neurological exam: Present alert and oriented X3 Medical Decision Making <TAMMI Lemon - Last Filed: 09/17/24 18:17> Medical Records Medical records reviewed: Yes I reviewed the patient's medical records. Screening: Per USPSTF and CDC recommendations, given the prevalence of disease in our region, it is our hospital?s policy to screen for HIV and viral Hepatitis for all patients aged 18 and over and those with ongoing risk factors. Berry Inquiry Pt receiving controlled substance: No Vital Signs: 09/17/24 13:45 09/17/24 14:10 09/17/24 14:20 Temperature 97.7 F Temperature Source Oral Pulse Rate 85 Pulse Rate [Left Brachial] 64 80 Respiratory Rate 18 16 Blood Pressure 135/90 Blood Pressure [Left Arm] 129/73 135/90 Blood Pressure Mean [Left Arm] 91 105 Blood Pressure Source Blood Pressure Source [Left Arm] Automatic Cuff Automatic Cuff Blood Pressure Position [Left Arm] Sitting Sitting 02 Sat by Pulse Oximetry 98 100 99 Oxygen Delivery Method Room Air Room Air 09/17/24 15:21 09/17/24 15:30 09/17/24 16:00 Temperature Temperature Source Pulse Rate 64 68 70 Pulse Rate [Left Brachial] Respiratory Rate Blood Pressure 107/73 L 121/81 128/76 Blood Pressure [Left Arm] Blood Pressure Mean [Left Arm] Blood Pressure Source Blood Pressure Source [Left Arm] Blood Pressure Position [Left Arm] 02 Sat by Pulse Oximetry 100 100 100 Oxygen Delivery Method Room Air Room Air Room Air 09/17/24 18:24 09/17/24 18:28 Temperature 98 F 98.2 F Temperature Source Oral Pulse Rate 76 73 Pulse Rate [Left Brachial] Respiratory Rate 18 20 Blood Pressure 128/76 128/76 Blood Pressure [Left Arm] Blood Pressure Mean [Left Arm] Blood Pressure Source Automatic Cuff Blood Pressure Source [Left Arm] Blood Pressure Position [Left Arm] 02 Sat by Pulse Oximetry Oxygen Delivery Method Room Air Lab Data Lab results reviewed: Yes I reviewed the patient's lab results. Lab Results 09/17/24 13:45: Urine Color Red, Urine Appearance Cloudy, Urine pH 8.0, Ur Specific [place] 1.020, Urine Protein 2+ A, Urine Glucose (UA) Negative, Urine Ketones Negative, Urine Blood 3+ A, Urine Nitrate Negative, Urine Bilirubin 1+ A, Urine Urobilinogen 2.0, Ur Leukocyte Esterase Negative, Urine RBC Tntc, Urine WBC Occasional, Ur Squamous Epith Cells Occasional, Urine Bacteria 1+, Urine HCG, Qual Negative 09/17/24 14:13: WBC 10.0, RBC 4.68, Hgb 12.7, Hct 39.0, MCV 83.4, MCH 27.1, MCHC 32.5, RDW 15.0, Plt Count 385, MPV 6.7 L, Neut % (Auto) 66.6, Lymph % (Auto) 26.9, [place] % (Auto) 4.3, Eos % (Auto) 1.5, Baso % (Auto) 0.7, Neut # (Auto) 6.7, Lymph # (Auto) 2.7, [place] # (Auto) 0.4, Eos # (Auto) 0.2, Baso # (Auto) 0.1, PT 10.0 L, INR 0.88 L, Sodium 139, Potassium 3.8, Chloride 106, Carbon Dioxide 28, Anion Gap 8.8, BUN 10, Creatinine 0.60, Estimated Creat Clear 102, Estimated GFR 116, Est GFR ( Amer) 140, Glucose 99, Calcium 9.0, Total Bilirubin 0.5, AST 26, ALT 17, Alkaline Phosphatase 124, Total Protein 8.2, Albumin 4.6, Globulin 3.6 H, Albumin/Globulin Ratio 1.3 09/17/24 14:31: HIV 1&2 Antibody Rapid Nonreactive 09/17/24 14:40: Lactate 0.6 L 09/17/24 14:13 09/17/24 14:13 Orders (Tests/Meds): ED MEDICATIONS Discontinued Medications Generic Name Dose Route Start Last Admin Trade Name Filipe PRN Reason Stop Dose Admin Acetaminophen 1,000 mg 09/17/24 14:12 09/17/24 14:34 Acetaminophen 500mg Tab PO 09/17/24 14:13 Not Given ONCE ONE Iopamidol 75 ml 09/17/24 14:57 09/17/24 15:01 Iopamidol-370 (76%);100ml Bottle IV 09/17/24 14:58 75 ml ONCE ONE Administration Ketorolac Tromethamine 15 mg 09/17/24 14:12 09/17/24 14:22 Ketorolac 30mg/Ml Vial IV 09/17/24 14:13 15 mg ONCE ONE Administration Morphine Sulfate 2 mg 09/17/24 17:44 09/17/24 18:19 Morphine 2mg/Ml Syringe IV 09/17/24 17:45 2 mg ONCE ONE Administration Sodium Chloride 10 ml 09/17/24 14:57 09/17/24 14:58 Sodium Chloride 0.9% 10ml Syr (Rad Only) IV 09/17/24 14:58 10 ml ONCE ONE Administration ORDERS Category Date Time Status CT abdomen pelvis w con Stat Cat Scan 09/17/24 14:12 Completed US transvaginal Stat Exams 09/17/24 17:44 Completed CBC w/Auto Diff [Complete Blood Count Auto Diff] Stat Lab 09/17/24 14:13 Completed CMP [Comprehensive Metabolic Panel] Stat Lab 09/17/24 14:13 Completed HIV (1&2) Antibody Rapid Stat Lab 09/17/24 14:31 Completed Hep C Ab with Reflex to RNA Stat Lab 09/17/24 14:31 Received INR [Prothrombin Time INR] Stat Lab 09/17/24 14:13 Completed Lactic Acid Stat Lab 09/17/24 14:40 Completed UA [Urinalysis and Microscopic] Stat Lab 09/17/24 13:45 Completed Urine , HCG Qual. Stat Lab 09/17/24 13:45 Completed Medical Decision Narrative: In summary patient is a 34-year-old female who presents to the emergency department for evaluation of right lower quadrant abdominal pain. Patient is hemodynamically stable upon arrival, afebrile. Physical exam is remarkable for mild abdominal tenderness in the right lower quadrant without rebound or guarding or rigidity. Bowel sounds normal active. No palpable edema swelling mass.. Differential diagnosis includes hernia versus kidney stone versus constipation etc. Initial workup will be conducted with hematologic labs urinalysis CT scan abdomen pelvis. Initial interventions include Tylenol. Initial workup reviewed by me shows significant hematuria patient is on her period with no other concerning findings on her microscopic exam and her hematologic labs are nonactionable and normal. My informal interpretation of her CT scan abdomen pelvis actually shows right hydronephrosis and hydroureter but no evidence of stone otherwise the remainder of her abdominal CT shows no acute processes prior to radiology read. Upon repeat evaluation patient reports no improvement and actually intensification after arrival in the emergency department. Given this ordered a transvaginal ultrasound to make sure that we rule out ovarian torsion. Vaginal ultrasound reveals no ovarian torsion or abnormality. Given this we have essentially ruled out any acute serious or life-threatening cause of her right lower quadrant abdominal pain with the exception of the radiographic findings of mild hydroureter and hydronephrosis without cause. Given that patient is appropriate for discharge with outpatient referral to urology for further evaluation. Patient return to ER for any worsening signs or symptoms as needed. <Ben De Luna MD - Last Filed: 09/17/24 19:05> Vital Signs: 09/17/24 13:45 09/17/24 14:10 09/17/24 14:20 Temperature 97.7 F Temperature Source Oral Pulse Rate 85 Pulse Rate [Left Brachial] 64 80 Respiratory Rate 18 16 Blood Pressure 135/90 Blood Pressure [Left Arm] 129/73 135/90 Blood Pressure Mean [Left Arm] 91 105 Blood Pressure Source Blood Pressure Source [Left Arm] Automatic Cuff Automatic Cuff Blood Pressure Position [Left Arm] Sitting Sitting 02 Sat by Pulse Oximetry 98 100 99 Oxygen Delivery Method Room Air Room Air 09/17/24 15:21 09/17/24 15:30 09/17/24 16:00 Temperature Temperature Source Pulse Rate 64 68 70 Pulse Rate [Left Brachial] Respiratory Rate Blood Pressure 107/73 L 121/81 128/76 Blood Pressure [Left Arm] Blood Pressure Mean [Left Arm] Blood Pressure Source Blood Pressure Source [Left Arm] Blood Pressure Position [Left Arm] 02 Sat by Pulse Oximetry 100 100 100 Oxygen Delivery Method Room Air Room Air Room Air 09/17/24 18:24 09/17/24 18:28 Temperature 98 F 98.2 F Temperature Source Oral Pulse Rate 76 73 Pulse Rate [Left Brachial] Respiratory Rate 18 20 Blood Pressure 128/76 128/76 Blood Pressure [Left Arm] Blood Pressure Mean [Left Arm] Blood Pressure Source Automatic Cuff Blood Pressure Source [Left Arm] Blood Pressure Position [Left Arm] 02 Sat by Pulse Oximetry Oxygen Delivery Method Room Air Lab Data Lab Results 09/17/24 13:45: Urine Color Red, Urine Appearance Cloudy, Urine pH 8.0, Ur Specific [place] 1.020, Urine Protein 2+ A, Urine Glucose (UA) Negative, Urine Ketones Negative, Urine Blood 3+ A, Urine Nitrate Negative, Urine Bilirubin 1+ A, Urine Urobilinogen 2.0, Ur Leukocyte Esterase Negative, Urine RBC Tntc, Urine WBC Occasional, Ur Squamous Epith Cells Occasional, Urine Bacteria 1+, Urine HCG, Qual Negative 09/17/24 14:13: WBC 10.0, RBC 4.68, Hgb 12.7, Hct 39.0, MCV 83.4, MCH 27.1, MCHC 32.5, RDW 15.0, Plt Count 385, MPV 6.7 L, Neut % (Auto) 66.6, Lymph % (Auto) 26.9, [place] % (Auto) 4.3, Eos % (Auto) 1.5, Baso % (Auto) 0.7, Neut # (Auto) 6.7, Lymph # (Auto) 2.7, [place] # (Auto) 0.4, Eos # (Auto) 0.2, Baso # (Auto) 0.1, PT 10.0 L, INR 0.88 L, Sodium 139, Potassium 3.8, Chloride 106, Carbon Dioxide 28, Anion Gap 8.8, BUN 10, Creatinine 0.60, Estimated Creat Clear 102, Estimated GFR 116, Est GFR ( Amer) 140, Glucose 99, Calcium 9.0, Total Bilirubin 0.5, AST 26, ALT 17, Alkaline Phosphatase 124, Total Protein 8.2, Albumin 4.6, Globulin 3.6 H, Albumin/Globulin Ratio 1.3 09/17/24 14:31: HIV 1&2 Antibody Rapid Nonreactive 09/17/24 14:40: Lactate 0.6 L Orders (Tests/Meds): ED MEDICATIONS Discontinued Medications Generic Name Dose Route Start Last Admin Trade Name Freq PRN Reason Stop Dose Admin Acetaminophen 1,000 mg 09/17/24 14:12 09/17/24 14:34 Acetaminophen 500mg Tab PO 09/17/24 14:13 Not Given ONCE ONE Iopamidol 75 ml 09/17/24 14:57 09/17/24 15:01 Iopamidol-370 (76%);100ml Bottle IV 09/17/24 14:58 75 ml ONCE ONE Administration Ketorolac Tromethamine 15 mg 09/17/24 14:12 09/17/24 14:22 Ketorolac 30mg/Ml Vial IV 09/17/24 14:13 15 mg ONCE ONE Administration Morphine Sulfate 2 mg 09/17/24 17:44 09/17/24 18:19 Morphine 2mg/Ml Syringe IV 09/17/24 17:45 2 mg ONCE ONE Administration Sodium Chloride 10 ml 09/17/24 14:57 09/17/24 14:58 Sodium Chloride 0.9% 10ml Syr (Rad Only) IV 09/17/24 14:58 10 ml ONCE ONE Administration ORDERS Category Date Time Status CT abdomen pelvis w con Stat Cat Scan 09/17/24 14:12 Completed US transvaginal Stat Exams 09/17/24 17:44 Completed CBC w/Auto Diff [Complete Blood Count Auto Diff] Stat Lab 09/17/24 14:13 Completed CMP [Comprehensive Metabolic Panel] Stat Lab 09/17/24 14:13 Completed HIV (1&2) Antibody Rapid Stat Lab 09/17/24 14:31 Completed Hep C Ab with Reflex to RNA Stat Lab 09/17/24 14:31 Received INR [Prothrombin Time INR] Stat Lab 09/17/24 14:13 Completed Lactic Acid Stat Lab 09/17/24 14:40 Completed UA [Urinalysis and Microscopic] Stat Lab 09/17/24 13:45 Completed Urine , HCG Qual. Stat Lab 09/17/24 13:45 Completed Medical Decision Narrative: In summary patient is a 34-year-old female who presents to the emergency department for evaluation of right lower quadrant abdominal pain. Patient is hemodynamically stable upon arrival, afebrile. Physical exam is remarkable for mild abdominal tenderness in the right lower quadrant without rebound or guarding or rigidity. Bowel sounds normal active. No palpable edema swelling mass.. Differential diagnosis includes hernia versus kidney stone versus constipation etc. Initial workup will be conducted with hematologic labs urinalysis CT scan abdomen pelvis. Initial interventions include Tylenol. Initial workup reviewed by me shows significant hematuria patient is on her period with no other concerning findings on her microscopic exam and her hematologic labs are nonactionable and normal. My informal interpretation of her CT scan abdomen pelvis actually shows right hydronephrosis and hydroureter but no evidence of stone otherwise the remainder of her abdominal CT shows no acute processes prior to radiology read. Upon repeat evaluation patient reports no improvement and actually intensification after arrival in the emergency department. Given this ordered a transvaginal ultrasound to make sure that we rule out ovarian torsion. Vaginal ultrasound reveals no ovarian torsion or abnormality. Given this we have essentially ruled out any acute serious or life-threatening cause of her right lower quadrant abdominal pain with the exception of the radiographic findings of mild hydroureter and hydronephrosis without cause. Given that patient is appropriate for discharge with outpatient referral to urology for further evaluation. Patient return to ER for any worsening signs or symptoms as needed. I was consulted by the RONALDO, and we discussed the complexity of the problems being addressed. I approved the treatment and management plan for this patient's care in the Emergency Department, thus performing a substantive portion of the medical decision making. Ben De Luna MD Critical Care <TAMMI Lemon - Last Filed: 09/17/24 18:17> Critical Care Time Critical Care Time: No
--- NOTE | 2024-09-17 14:12 | CT_ITS ---
PROCEDURE INFORMATION: Exam: CT Abdomen And Pelvis With Contrast Exam date and time: 09/17/2024 2:58 PM Age: 34 years old Clinical indication: Abdominal pain; Additional info: Rlq quadrant abdominal pain TECHNIQUE: Imaging protocol: Computed tomography of the abdomen and pelvis with contrast. Radiation optimization: All CT scans at this facility use at least one of these dose optimization techniques: automated exposure control; mA and/or kV adjustment per patient size (includes targeted exams where dose is matched to clinical indication); or iterative reconstruction. Contrast material: ISOVUE; Contrast volume: 75 ml; Contrast route: IV; COMPARISON: CT ABDOMEN PELVIS W CON 09/17/2024 2:58 PM FINDINGS: Lungs: Lung bases are clear. Liver: Normal. No mass. Gallbladder and biliary ducts: Normal. No calcified stones. No ductal dilation. Pancreas: Normal. No ductal dilation. Spleen: Normal. No splenomegaly. Adrenal glands: Normal. No mass. Kidneys and ureters: Borderline right sided hydronephrosis and hydroureter of the proximal to mid right ureter compared to the left. No evident ureteral stone. Kidneys otherwise unremarkable. No evident perinephric or periureteral stranding. Stomach and bowel: Unremarkable. No obstruction. No mucosal thickening. Appendix: Appendix is normal. No evidence of appendicitis. Intraperitoneal space: Unremarkable. No free air. No significant fluid collection. Vasculature: Unremarkable. No abdominal aortic aneurysm. Lymph nodes: Unremarkable. No enlarged lymph nodes. Urinary bladder: Unremarkable as visualized. Reproductive: Unremarkable as visualized. Bones/joints: Unremarkable. No acute fracture. Soft tissues: Unremarkable. IMPRESSION: Borderline right-sided hydroureteronephrosis. Finding may be a normal variation or transient distension. The possibility of residual from recently passed stone or urinary tract infection or other occult obstructing process cannot be entirely excluded given right-sided symptoms with no other explanation on this CT. Advise clinical assessment and follow-up.
[2024-09-17] MEDS: KETOROLAC 30MG/ML VIAL 15 MG IV (14:22)
[2024-09-17 14:26] LABS: Microscopic, Urine URINE MICROSCOPIC (MICROSCOPIC)
[2024-09-17 14:33] LABS: Appearance,Urine CLOUDY (Clear); Blood, Urine 3+ (Negative); Color,Urine RED (Yellow); Glucose,Urine (UA) Negative (Negative); Ketones,Urine Negative (Negative); Leukocyte Esterase,Urine Negative (Negative); Nitrate,Urine Negative (Negative); Protein,Urine 2+ (Negative)
[2024-09-17 14:34] LABS: Urine Pregnancy, HCG Qual. Negative (Negative)
[2024-09-17 14:41] LABS: Basophils # 0.1 K/mm3 (0-0.2); Basophils % 0.7 % (0.1-2.0); Eosinophils # 0.2 K/mm3 (0.0-0.4); Eosinophils % 1.5 % (0.1-12.0); Hemoglobin 12.7 g/dL (12.2-16.2); Lymphocytes # 2.7 K/mm3 (0.7-4.5); Lymphocytes % 26.9 % (10-50); Mean Corpuscular HGB Conc 32.5 g/dL (31.8-35.4); Mean Corpuscular Hemoglobin 27.1 pg (27.0-31.2); Mean Corpuscular Volume 83.4 fl (81-99); Mean Platelet Volume 6.7 fl (7.4-10.4); Monocytes # 0.4 K/mm3 (0.1-1.0); Monocytes % 4.3 % (1.7-9.3); Neutrophils # 6.7 K/mm3 (1.8-7.8); Neutrophils % 66.6 % (37.0-80.0); Platelet Count 385 K/mm3 (142-424); Red Blood Count 4.68 M/mm3 (4.20-5.40)
--- NOTE | 2024-09-17 14:42 | PC.NURSE ---
I rounded on the pt. no new complaints at this time, call sinha in reach.
[2024-09-17 14:46] LABS: INR 0.88 (0.9-1.1)
[2024-09-17 14:46] LABS: Bilirubin,Urine 1+ (Negative)
[2024-09-17 14:53] LABS: Alanine Aminotransferase 17 U/L (12-78); Albumin Level 4.6 g/dl (3.5-5.0); Albumin/Globulin Ratio 1.3 (1.1-1.8); Alkaline Phosphatase 124 U/L (38-126); Anion Gap 8.8 mEq/L (5-15); Aspartate Amino Transferase 26 U/L (14-36); Bilirubin,Total 0.5 mg/dl (0.2-1.3); Blood Urea Nitrogen 10 mg/dl (7-17); Carbon Dioxide 28 mmol/L (22.0-30.0); Chloride 106 mmol/L (98-107); Creatinine Clearance Estimated 102 mL/min (50-200); Estimated Glomerular Filt Rate 116 ml/min (>60); GFR (African American) 140 ML/MIN (>60); Globulin 3.6 g/dL (1.3-3.2); Glucose 99 mg/dl (74-100); Potassium 3.8 mmoL/L (3.5-5.1); Sodium 139 mmol/L (136-145); Total Protein,Serum 8.2 g/dl (6.3-8.2)
[2024-09-17 14:56] LABS: Lactic Acid 0.6 mmol/L (0.7-2.1)
[2024-09-17] MEDS: SODIUM CHLORIDE 0.9% 10ML SYR (RAD ONLY) 10 ML IV (14:58)
[2024-09-17] MEDS: IOPAMIDOL-370 (76%);100ML BOTTLE 75 ML IV (15:01)
[2024-09-17 15:09] LABS: Bacteria,Urine 1+ /lpf; RBC,Urine TNTC #/hpf (0-3); Squamous Epithelial Cell,Urine Occasional #/hpf (0-5); WBC,Urine Occasional #/hpf (0-3)
--- NOTE | 2024-09-17 15:23 | PC.NURSE ---
pt resting in bed no needs at this time,call light in reach
[2024-09-17 16:19] LABS: HIV (1&2) Antibody Rapid NONREACTIVE (NONREACTIVE)
--- NOTE | 2024-09-17 17:44 | US_ITS ---
PROCEDURE INFORMATION: Exam: US Duplex Artery or Vein of the Abdominal and/or Reproductive Organs, Limited Ovaries Exam date and time: 09/17/2024 5:59 PM Age: 34 years old Clinical indication: Pelvic pain; Additional info: Rlq abd pain TECHNIQUE: Imaging protocol: Real-time duplex ultrasound scan of the arterial or venous flow with singh scale, color Doppler flow and spectral waveform analysis with image documentation. Limited duplex exam focused on the ovaries. Duplex exam was performed to evaluate for torsion and other vascular conditions. COMPARISON: CT ABDOMEN PELVIS W CON 09/17/2024 2:58 PM FINDINGS: Right ovary/adnexa: Normal arterial and venous Doppler waveforms. No evidence of ovarian torsion. Left ovary/adnexa: Normal arterial and venous Doppler waveforms. No evidence of ovarian torsion. IMPRESSION: Normal duplex of the ovaries. No evidence of ovarian torsion. PROCEDURE INFORMATION: Exam: US Pelvis, Transvaginal, Non-Obstetric Exam date and time: 09/17/2024 5:59 PM Age: 34 years old Clinical indication: Pelvic pain; Additional info: Rlq abd pain TECHNIQUE: Imaging protocol: Real-time transvaginal pelvic (non-obstetric) ultrasound with image documentation. Transvaginal imaging was used for better evaluation of the endometrium, adnexa, and/or cervix. COMPARISON: CT ABDOMEN PELVIS W CON 09/17/2024 2:58 PM FINDINGS: Uterus: Uterus measures 9.0 x 4.8 x 5.3 cm. Multiple nabothian cysts. Endometrial stripe normal thickness at 7 mm. Right ovary/adnexa: Normal. No mass. Normal ovarian blood flow on color Doppler. Right ovary measures 1.9 x 1.4 x 1.5 cm. Left ovary/adnexa: Normal. No mass. Normal ovarian blood flow on color Doppler. Left ovary measures 2.6 x 1.3 x 1.5 cm. Urinary bladder: Urinary bladder is limited. Intraperitoneal space: No free fluid. IMPRESSION: No acute abnormality.
--- NOTE | 2024-09-17 17:44 | PC.NURSE ---
RADIOLOGY NOTIFIED OF TV US
--- NOTE | 2024-09-17 17:50 | PC.NURSE ---
PT TO US
--- NOTE | 2024-09-17 18:13 | PC.NURSE ---
PT RETURNED FROM US
[2024-09-17] MEDS: MORPHINE 2MG/ML SYRINGE 2 MG IV (18:19)
[2024-09-18 07:14] LABS: HCV Ab Non Reactive (Non Reactive)
== END 2024-09-17 18:27 | disposition home or self-care (01) ==
LOC: UTC 12:29 → ER 14:09
PROVIDERS: Nurse Practitioner; Physician Assistant; Student in an Organized Health Care Education/Training Program; Emergency Provider Emergency Medicine
DX: R10.31 Right lower quadrant pain (principal); R11.0 Nausea
CPT/HCPCS: 74177; 76830; 80053; 81001; 81025; 83605; 85025; 85610; 86803; 87389; 96374; 96375; 99285; J1885; J2270; Q9967

== ENCOUNTER 2024-10-08 11:45 | Emergency (ER) | payer MEDICAID, SELFPAY ==
[2024-10-08 12:44] VITALS: BP 131/89; PULSE 94; RESP 21; TEMP 36.7; O2SAT 100; BMI 47.1
--- NOTE | 2024-10-08 12:50 | ED_ITS ---
Discharge Plan Disposition Patient Disposition: Home, Self-Care Condition: Good Prescriptions Prescriptions: New azithromycin [Zithromax] 250 mg tablet 250 mg PO UD DOSE PK Qty: 6 0RF Rx Instructions: Take two (2) tablets today, then one (1) tablet days #2 thru #5 methylprednisolone 4 mg Tablets,Dose Pack 4 mg PO DIRECTED 6 Days Qty: 21 0RF Rx Instructions: Take 1 pack as directed for 6 days guaifenesin [Mucinex] 600 mg tablet extended release 12hr 600 - 1,200 mg PO BIDP PRN (Reason: Congestion) Qty: 30 0RF benzonatate 100 mg capsule 100 mg PO TIDP PRN (Reason: Cough) Qty: 30 0RF No Action famotidine 20 mg tablet 20 mg PO BID albuterol sulfate 90 mcg/actuation HFA aerosol inhaler 2 puff inhalation Q6H PRN (Reason: SOA) Referrals Follow up/Referrals: Provider,Referral, MD [Primary Care Provider] - See instructions Activity Restrictions/Add. Instructions Additional Instructions/Restrictions: Drink plenty of fluids. Take tylenol or ibuprofen for pain or fever. Take the medications as directed. Follow up with your regular doctor. GO TO THE ER FOR ANY WORSENING SYMPTOMS Clinical Impressions Clinical Impression: Acute bronchitis Instructions Patient Instructions: Acute Bronchitis, DI for Acute Bronchitis Print Language Print Language: Burkinan Discharge ED Provider[place] Torsten Watts [facility] [place] General Stated complaint: cough Mode of Arrival: Ambulatory Source of Information: Patient Time Seen by Provider: 10/08/24 12:50 Description of Symptoms (Recalled from Triage Doc. by RN): HEAVY YACKING COUGH , FEELS LIKE CHEST CONGESTION X2 WEEKS HEENT Symptoms (Recalled from RN notes): No Resp Symptoms (Recalled from RN notes): Yes Skin Symptoms (Recalled from RN notes): No MS Symptoms (Recalled from RN notes): No Functional Status (Recalled from RN notes): WNL Related Data Home Medications ?Medication ?Instructions ?Recorded ?Confirmed albuterol sulfate 90 mcg/actuation 2 puff inhalation Q6H PRN SOA 04/16/24 10/08/24 aerosol inhaler famotidine 20 mg tablet 20 mg PO BID 04/16/24 10/08/24 Previous Rx's ?Medication ?Instructions ?Recorded azithromycin 250 mg tablet 250 mg PO UD DOSE PK #6 tabs 10/08/24 (Zithromax) benzonatate 100 mg capsule 100 mg PO TIDP PRN Cough #30 caps 10/08/24 guaifenesin 600 mg tablet, 600 - 1,200 mg (1 - 2 x 600 mg) PO 10/08/24 extended release 12 hr (Mucinex) BIDP PRN Congestion #30 tabs methylprednisolone 4 mg tablets in 4 mg PO DIRECTED 6 days #21 tabs 10/08/24 a dose pack Allergies Allergy/AdvReac Type Severity Reaction Status Date / Time amoxicillin Allergy Verified 07/10/24 10:09 cephalexin [From Keflex] Allergy Verified 07/10/24 10:09 clindamycin Allergy Verified 07/10/24 10:09 diphenhydramine Allergy Verified 07/10/24 10:09 [From Benadryl] fexofenadine [From Violet] Allergy Verified 07/10/24 10:09 pantoprazole [From Protonix] Allergy Verified 07/10/24 10:09 Penicillins Allergy Verified 07/10/24 10:09 Sulfa (Sulfonamide Allergy Verified 07/10/24 10:09 Antibiotics) Worker's Comp Is this a Worker's Comp case?: No [facility] Disclaimer: The information contained in this section may have been updated after the patient was seen, as this information can be updated by other users. 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) Smoking Status: Never smoker alcohol intake: former current occupational status: other Travel in the last 8 weeks: None ROS Obtained: Yes All systems reviewed & no additional complaints except as documented Constitutional Constitutional: Reports poor appetite Eyes Eyes: Reports system reviewed and no additional complaints, except as documented ENT Ears, Nose, Mouth, and Throat: Reports as per HPI Cardiovascular Cardiovascular: Reports system reviewed and no additional complaints, except as documented and Denies chest pain Respiratory Respiratory: Denies shortness of breath, Reports chest congestion, Reports cough, Denies stridor and Denies wheezing Gastrointestinal Gastrointestingal: Reports system reviewed and no additional complaints, except as documented; Denies abdominal pain, diarrhea or vomiting Musculoskeletal Musculoskeletal: Reports system reviewed and no additional complaints, except as documented and Denies arthralgias Integumentary/Breasts Skin/Breast: Reports system reviewed and no additional complaints, except as documented and Denies rash Neurologic Neurologic: Denies paresthesias Allergic/Immunologic Allergic/Immunologic: Denies wheezing Physical Exam General General appearance: alert and in no apparent distress Head Head exam: atraumatic, normocephalic and normal inspection Eye Eye exam: Present normal appearance, PERRL and EOMI ENT ENT exam: Present normal exam, normal oropharynx, mucous membranes moist, TM's normal bilaterally and normal external ear exam Neck Neck exam: Present normal inspection, full ROM and trachea midline; Absent meningismus or lymphadenopathy Chest Chest inspection: Present normal inspection and symmetric chest wall rise; Absent tenderness Respiratory Respiratory exam: Present normal lung sounds bilaterally; Absent respiratory distress Cardiovascular Cardiovascular exam: Present regular rate and normal rhythm; Absent JVD Abdominal Exam Abdominal exam: Present soft and normal bowel sounds; Absent distention, tenderness or guarding Extremities Exam Extremities exam: Present normal inspection, full ROM and normal capillary refill; Absent calf tenderness Back Exam Back exam: Present normal inspection; Absent tenderness Neurological Exam Neurological exam: Present alert and oriented X3 Psychiatric Psychiatric exam: Present normal affect and normal mood Skin Skin exam: Present warm, dry, intact and normal color Lymphatic Lymphatic Findings: no adenopathy Medical Decision Making Medical Records Medical records reviewed: No I reviewed the patient's medical records. Screening: Per USPSTF and CDC recommendations, given the prevalence of disease in our region, it is our hospital?s policy to screen for HIV and viral Hepatitis for all patients aged 18 and over and those with ongoing risk factors. Berry Inquiry Pt receiving controlled substance: No Vital Signs: 10/08/24 12:44 Temperature 98.0 F Temperature Source Oral Pulse Rate [Left Radial] 94 H Respiratory Rate 21 Blood Pressure [Left Arm] 131/89 Blood Pressure Mean [Left Arm] 103 02 Sat by Pulse Oximetry 100 Lab Data Lab results reviewed: Yes I reviewed the patient's lab results.
[2024-10-08 13:24] VITALS: BP 131/89; PULSE 94; RESP 21; TEMP 36.7
== END 2024-10-08 13:26 | disposition home or self-care (01) ==
PROVIDERS: Emergency Provider Nurse Practitioner Family
DX: J20.9 Acute bronchitis, unspecified (principal)
CPT/HCPCS: 99213; G0381